=== PATIENT | female | born 1960 | race Two or more races ===

== ENCOUNTER 2018-05-20 06:21 | Emergency (ER) | payer OTHER ==
[~2018-05-20] VITALS: Ht 154.9 cm; Wt 63.5 kg
[2018-05-20] MEDS ORDERED: SKELAXIN800 MG PO (10:34)
[2018-05-20] MEDS ORDERED: CELEBREX100 MG PO (10:34)
== END 2018-05-20 10:55 | disposition home or self-care (01) ==
LOC: ER 06:21
DX: M54.5 Low back pain (principal)

== ENCOUNTER 2022-01-19 07:31 | Outpatient (CLI) | payer OTHER ==
[~2022-01-19 07:31] MED LIST: CELEBREX100 MG PO; SKELAXIN800 MG PO
== END 2022-01-19 07:41 | disposition home or self-care (01) ==
LOC: MAMO-SONO 07:31
PROVIDERS: ATTEND Obstetrics & Gynecology Gynecology
DX: N60.12 Diffuse cystic mastopathy of left breast (principal); N60.11 Diffuse cystic mastopathy of right breast

== ENCOUNTER 2022-01-19 09:04 | Outpatient (CLI) | payer OTHER | END 2022-01-19 13:39 | disposition home or self-care (01) | LOC: LAB 09:04 | PROVIDERS: ATTEND Obstetrics & Gynecology Gynecology | DX: D64.9 Anemia, unspecified (principal); E03.9 Hypothyroidism, unspecified; E55.9 Vitamin D deficiency, unspecified; E78.5 Hyperlipidemia, unspecified; Z12.11 Encounter for screening for malignant neoplasm of colon; N39.0 Urinary tract infection, site not specified ==

== ENCOUNTER 2022-11-24 09:51 | Emergency (ER) | payer OTHER ==
[~2022-11-24] VITALS: Ht 157.5 cm; Wt 63.5 kg
[2022-11-24] MEDS ORDERED: IRBESARTAN75 MG PO (10:12)
== END 2022-11-24 11:38 | disposition home or self-care (01) ==
LOC: ER 09:51
DX: L02.211 Cutaneous abscess of abdominal wall (principal); I10 Essential (primary) hypertension; Z88.0 Allergy status to penicillin

== ENCOUNTER 2022-11-28 10:40 | Emergency (ER) | payer OTHER ==
[~2022-11-28] VITALS: Ht 157.5 cm; Wt 64.0 kg
[~2022-11-28 10:40] MED LIST changes: +IRBESARTAN75 MG PO
[2022-11-28] MEDS ORDERED: CEFADROXIL500 MG PO (11:07)
== END 2022-11-28 12:25 | disposition home or self-care (01) ==
LOC: ER 10:40
DX: L02.211 Cutaneous abscess of abdominal wall (principal)

== ENCOUNTER 2022-11-29 15:18 | Inpatient (IN) | payer OTHER ==
[~2022-11-29] VITALS: Ht 157.5 cm; Wt 63.5 kg
[~2022-11-29 15:18] MED LIST changes: +CEFADROXIL500 MG PO
--- NOTE | 2022-11-29 15:48 | NUR ---
PACIENTE ALERTA Y ORIENTADA X3, ENVIADA POR EL DR. JAY LOVE PARA ADMISION. SE MONITOREAN VS Y SE UBICA EN K7.
--- NOTE | 2022-11-29 17:46 | NUR ---
SE EDUCA A PTE SOBRE TX MEDICO ESTA REFIERE ENTENDER, SE ANA MUESTRAS DE LABORATORIO UTILIZANDO MEDIDAS ASEPTICAS. SE COLOCA H/L A PTE Y SE ADMINISTRAN MEDICAMENTOS LOS CUALES TOLERA. SE NOTIFICA RX PENDIENTE A REALIZAR. PTE EN ESPERA DE CONSULTA CON MEDICINA INTERNA.
== END 2022-12-02 14:37 | disposition home or self-care (01) | DRG 908 ==
LOC: ER 15:18 → MEDJ 18:05
PROVIDERS: Specialist; ADMIT Internal Medicine; ATTEND Internal Medicine
PROC: 0JD80ZZ Extraction of Abdomen Subcutaneous Tissue and Fascia, Open Approach (ICD-10-PCS; principal; 2022-12-01 07:00)
DX: S31.143A Puncture wound of abdominal wall with foreign body, right lower quadrant without penetration into peritoneal cavity, initial encounter (principal); L03.311 Cellulitis of abdominal wall; W34.00XA Accidental discharge from unspecified firearms or gun, initial encounter; I10 Essential (primary) hypertension; Z20.822 Contact with and (suspected) exposure to COVID-19